=== PATIENT | female | born 1990 | race African-American/Black ===

== ENCOUNTER 2017-11-15 10:26 | Outpatient (CLI) | payer OTHER ==
[2017-11-15] MEDS ORDERED: LACTATED RINGERS 500 ML IV ONE (10:37)
[2017-11-15 13:37] VITALS: BP 96/51
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
== END 2017-11-15 13:58 | disposition home or self-care (01) ==
LOC: TRG 10:26 → LD 10:32 → TRG 13:58
PROVIDERS: ATTEND Obstetrics & Gynecology
DX: O9A.212 Injury, poisoning and certain other consequences of external causes complicating pregnancy, second trimester (principal); Z3A.19 19 weeks gestation of pregnancy
CPT/HCPCS: 59025; 76805